=== PATIENT | male | born 1960 | race Caucasian/White ===

== ENCOUNTER 2019-11-30 20:11 | Emergency (ER) | payer BC ==
[2019-11-30 20:17] VITALS: TEMP 98.8
--- NOTE | 2019-11-30 20:54 | ED ---
General Adult HPI - General Chief complaint: Extremity Injury, Upper Stated complaint: L Elbow Pain Time Seen by Provider: 11/30/19 20:23 Source: patient, RN notes reviewed Mode of arrival: ambulatory Limitations: no limitations - History of Present Illness Initial comments: 59-year-old male presents to the emergency room for a chief complaint of left e lbow pain. Patient reports that he was lifting a grill when he suddenly felt a sharp pain in his left anterior elbow. Patient reports that he started to have swelling over the left anterior elbow area. Patient reports his neighbor is a nurse and told him to come to the emergency room. Patient states his pain is controlled at this time and he just took 2 Motrin.Patient has no other complaints at this time including shortness of breath, chest pain, abdominal pain, nausea or vomiting, headache, or visual changes. - Related Data Allergies Allergy/AdvReac Type Severity Reaction Status Date / Time Penicillins Allergy Rash/Hives Verified 11/30/19 20:18 Review of Systems ROS Statement: Those systems with pertinent positive or pertinent negative responses have been documented in the HPI. ROS Other: All systems not noted in ROS Statement are negative. Past Medical History Past Medical History: Hyperlipidemia, Hypertension History of Any Multi-Drug Resistant Organisms: None Reported Past Surgical History: No Surgical Hx Reported Past Psychological History: No Psychological Hx Reported Smoking Status: Never smoker Past Alcohol Use History: Occasional Past Drug Use History: None Reported General Exam Limitations: no limitations General appearance: alert, in no apparent distress Head exam: Present: atraumatic, normocephalic, normal inspection Eye exam: Present: normal appearance, PERRL, EOMI. Absent: scleral icterus, conjunctival injection, periorbital swelling ENT exam: Present: normal exam, mucous membranes moist Neck exam: Present: normal inspection, full ROM. Absent: tenderness, meningismus, lymphadenopathy Respiratory exam: Present: normal lung sounds bilaterally. Absent: respiratory distress, wheezes, rales, rhonchi, stridor Cardiovascular Exam: Present: regular rate, normal rhythm, normal heart sounds. Absent: systolic murmur, diastolic murmur, rubs, gallop, clicks Extremities exam: Present: full ROM (full range of motion of the left elbow.), tenderness (tenderness noted to the left antecubital fossa.), normal capillary refill (capillary refill less than 2 seconds, radial pulse 2+ in the left upper extremity.), joint swelling (patient does have mild edema noted to the left anterior cubital fossa.), other (positive test in the left antecubital fossa. Patient does have bulging of the left biceps body.) Course Vital Signs 11/30/19 20:13 Temperature 98.8 F Pulse Rate 63 Respiratory 16 Rate Blood Pressure 140/79 O2 Sat by Pulse 98 Oximetry Medical Decision Making - Medical Decision Making HPI and physical exam as documented. Patient does have a positive test and Armen sign of the left bicep. Neurovascular status is intact. X-ray left elbow is negative. I suspect t a distal left biceps tendon rupture. Dr. Driver spoke with Dr. Lira. Requested the patient in office tomorrow. Pain is controlled at this time and patient declines any other pain medication for home or here. Patient will continue to take Motrin and Tylenol. He'll return here for any worsening symptoms. Otherwise will [facility] tomorrow morning. Disposition Clinical Impression: Elbow pain, left Narrative: suspected left distal biceps tendon rupture Disposition: HOME SELF-CARE Condition: Good Instructions (If sedation given, give patient instructions): Tendon Rupture (ED) Additional Instructions: please take Motrin and Tylenol for pain. Please ice the area. Call [facility] tomorrow morning for an appointment. Dr. Lira requested to see you tomorrow given the suspected distal biceps tendon rupture. return to the emergency room should you have any worsening symptoms. Is patient prescribed a controlled substance at d/c from ED?: No Referrals: Cruz Jones DO [Primary Care Provider] - 1-2 days Hola Lira MD [STAFF PHYSICIAN] - 1-2 days Time of Disposition: 21:28
--- NOTE | 2019-11-30 20:58 | XR ---
EXAMINATION TYPE: XR elbow complete LT DATE OF EXAM: 11/30/2019 COMPARISON: NONE HISTORY: Elbow pain TECHNIQUE: 3 views FINDINGS: There is no sign of fracture nor dislocation. Joint spaces are normal. There is no sign of elbow joint effusion. IMPRESSION: Negative left elbow exam. No fracture.
[2019-11-30 21:51] VITALS: BP 128/78; PULSE 68; RESP 17
== END 2019-11-30 21:45 | disposition home or self-care (01) ==
LOC: EC 20:11
DX: M25.522 Pain in left elbow (principal); Z88.0 Allergy status to penicillin
CPT/HCPCS: 99283